=== PATIENT | female | born 1975 ===

== ENCOUNTER 2017-09-17 09:46 | Emergency (ER) | payer SELFPAY ==
[2017-09-17 10:36] VITALS: BP 143/86
--- NOTE | 2017-09-17 10:54 | ED ---
Respiratory - HPI Summary HPI Summary: 42 yr old female with the complaint of cough, hoarseness, feeling chills. She was diagnosed with influenza a couple weeks ago, had course of tamiflu. She is still coughing and feels like she has chills at times, low grade fever. She states her voice is in and out with being hoarse at times. Denies trouble swallowing. No stridor. No SOB. No other complaints. - History of Current Complaint Chief Complaint: UCRespiratory Stated Complaint: COUGH,FEVER,NO VOICE FOR 2 WEEKS Time Seen by Provider: 09/17/17 10:37 Pain Intensity: 0 - Allergy/Home Medications Allergies/Adverse Reactions: Allergies Allergy/AdvReac Type Severity Reaction Status Date / Time tomato Allergy Difficulty Verified 09/17/17 10:28 Swallowing IV CONTRAST Allergy Anaphylatic Uncoded 09/17/17 10:28 Shock Home Medications: Home Medications Oseltamivir CAP* [Tamiflu CAP*] 30 mg PO BID 09/17/17 [History Confirmed ] PMH/Surg Hx/FS Hx/Imm Hx Infectious Disease History: No Infectious Disease History: Denies: Traveled Outside the [place] in Last 30 Days - Family History Known Family History: Positive: None - Social History Alcohol Use: None Substance Use Type: Reports: None Smoking Status (MU): Never Smoked Tobacco Review of Systems Positive: Chills Positive: Nasal Discharge Positive: Cough All Other Systems Reviewed And Are Negative: Yes Physical Exam Triage Information Reviewed: Yes Vital Signs On Initial Exam: Initial Vitals Temp Pulse Resp BP Pulse Ox 99.1 F 91 16 143/86 99 09/17/17 10:29 09/17/17 10:29 09/17/17 10:29 09/17/17 10:29 09/17/17 10:29 Vital Signs Reviewed: Yes Appearance: Positive: Well-Appearing, No Pain Distress Skin: Positive: Warm, Skin Color Reflects Adequate Perfusion Head/Face: Positive: Normal Head/Face Inspection Eyes: Positive: EOMI ENT: Positive: Pharynx normal, Nasal congestion, TMs normal, Hoarse voice - mild larygitis, Uvula midline. Negative: Tonsillar swelling, Tonsillar exudate , Trismus, Muffled voice Neck: Positive: Nontender Respiratory/Lung Sounds: Positive: Clear to Auscultation, Breath Sounds Present Cardiovascular: Positive: RRR. Negative: Murmur Musculoskeletal: Positive: Strength/ROM Intact Neurological: Positive: Sensory/Motor Intact, Alert, Oriented to Person Place, Time, CN Intact II-III Psychiatric: Positive: Normal - Luca Coma Scale Best Eye Response: 4 - Spontaneous Best Motor Response: 6 - Obeys Commands Best Verbal Response: 5 - Oriented Coma Scale Total: 15 Diagnostics - Vital Signs Vital Signs Temp Pulse Resp BP Pulse Ox 09/17/17 10:29 99.1 F 91 16 143/86 99 - Laboratory Lab Statement: Any lab studies that have been ordered have been reviewed, and results considered in the medical decision making process. - Radiology chest xray Xray Interpretation: No Acute Changes Radiology Interpretation Completed By: Radiologist Disposition - Course Course Of Treatment: 42 yr old female with coughing. - Diagnoses Provider Diagnoses: Acute bronchitis Discharge - Discharge Plan Condition: Good Disposition: HOME Prescriptions: Albuterol HFA INHALER* [Ventolin HFA Inhaler*] 1 - 2 puff INH Q6H PRN #1 mdi PRN Reason: Cough predniSONE TAB* [Deltasone TAB*] 40 mg PO DAILY #8 tab Patient Education Materials: Acute Bronchitis (ED), Hypertension (ED) Forms: *Work Release Referrals: [facility] [place] [facility]IAN REFERRAL [Outside] Non Staff,Doctor [Primary Care Provider] -
--- NOTE | 2017-09-17 11:42 | RAD ---
Indication: Chest pain. No prior study is available for comparison. 2 views of the chest including dual energy PA views demonstrate no mediastinal shift. Heart is of normal size and configuration. Lung castro appear clear. IMPRESSION: No active cardiopulmonary disease is noted.
== END 2017-09-17 11:52 | disposition home or self-care (01) ==
LOC: UCCORT 09:46
DX: J20.9 Acute bronchitis, unspecified (principal)
CPT/HCPCS: 71046; 99202; G0463

== ENCOUNTER 2019-03-16 15:35 | Emergency (ER) | payer BC ==
[2019-03-16] MEDS ORDERED: Ibuprofen TAB* 400 MG PO ONE (15:57)
--- NOTE | 2019-03-16 15:57 | UC ---
Knee Pain HPI - HPI Summary HPI Summary: patient fell while dancing at wedding yesterday around 3p and injured right knee. was able to ambulate after fall with pain, today knee very painful and swollen, worse if bends knee. 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 Hx Last Menstrual Period: 08/28/17 Onset/Duration: Sudden Onset Severity Initially: Moderate Severity Currently: Moderate Location Of Injury: R knee cap area Character: Throbbing, Stiffness Aggravating Factor(s): Weight Bearing Alleviating Factor(s): Rest, Cold Associated Signs And Symptoms: Positive: Swelling Able to Bear Weight: Yes - with pain - Allergies/Home Medications Allergies/Adverse Reactions: Allergies Allergy/AdvReac Type Severity Reaction Status Date / Time tomato Allergy Difficulty Verified 03/16/19 15:55 Swallowing IV CONTRAST Allergy Anaphylatic Uncoded 03/16/19 15:55 Shock Home Medications: Home Medications Levothyroxine TAB* [Synthroid TAB*] 12.5 mcg PO 0800 03/16/19 [History Confirmed 03/16/19] PMH/Surg Hx/FS Hx/Imm Hx Previously Healthy: Yes Endocrine History: Hypothyroidism - Surgical History Surgical History: None - Family History Known Family History: Positive: None - Social History Occupation: Employed Full-time Lives: With Family Alcohol Use: None Substance Use Type: None Smoking Status (MU): Never Smoked Tobacco Review of Systems All Other Systems Reviewed And Are Negative: Yes Constitutional: Positive: Negative Skin: Positive: Other - abrasion R knee Respiratory: Positive: Negative Cardiovascular: Positive: Negative Musculoskeletal: Positive: Decreased ROM - R knee, pain, swelling Neurological: Positive: Negative Psychological: Positive: Negative Is Patient Immunocompromised?: No Physical Exam Triage Information Reviewed: Yes Appearance: Well-Appearing, No Pain Distress, Obese Vital Signs Reviewed: Yes Neck exam: Normal Neck: Positive: Supple, Nontender Respiratory Exam: Normal Respiratory: Positive: Lungs clear Cardiovascular Exam: Normal Cardiovascular: Positive: RRR Musculoskeletal: Positive: ROM Limited @ - R knee,, Other: - swelling, superficial abrasion R knee Neurological Exam: Normal Psychological Exam: Normal Diagnostics - Radiology No standard instances Radiology Interpretation Completed By: Radiologist - No fractures right knee Knee Pain Course/Dx - Differential Dx/Diagnosis Differential Diagnosis/HQI/PQRI: Contusion, Fracture (Closed), Strain Provider Diagnosis: Knee injury Discharge - Sign-Out/Discharge Documenting (check all that apply): Patient Departure All imaging exams completed and their final reports reviewed: Yes - No fracture right knee - Discharge Plan Condition: Good Disposition: HOME Patient Education Materials: Knee Pain (ED) Referrals: Ronald Cordova MD [Primary Care Provider] - 2 Days (for blood pressure recheck) Additional Instructions: elevate leg and apply ice use knee immobilizer for support use ibuprofen 600-800mg every 6 hours as needed for pain follow-up with orthopedics in [place] as soon as possible - Billing Disposition and Condition Condition: GOOD Disposition: Home
[2019-03-16 15:58] VITALS: BP 146/101
== END 2019-03-16 17:20 | disposition home or self-care (01) ==
LOC: UCEAST 15:35
DX: S89.91XA Unspecified injury of right lower leg, initial encounter (principal); W18.30XA Fall on same level, unspecified, initial encounter; Y93.41 Activity, dancing; Y92.9 Unspecified place or not applicable; Y99.8 Other external cause status; E03.9 Hypothyroidism, unspecified
CPT/HCPCS: 99212; A9270-GY; G0463